=== PATIENT | male | born 1965 | race Caucasian/White ===

== ENCOUNTER 2018-01-16 23:49 | Emergency (ER) | payer OTHER ==
[~2018-01-16] VITALS: Ht 170.2 cm; Wt 74.0 kg
[~2018-01-16 23:49] MED LIST: CEFD300C37 PO; FOLI-17 PO; NADO20TA12 PO; OMEP-110 PO; ONDA4TAB10 PO; SPIR25TA PO; SUCR1ORA5 PO; THIA50TA PO
[2018-01-16 23:52] VITALS: BP 126/76
[2018-01-17] MEDS ORDERED: LIDOCAINE 2%, 20ML INFIL ONE (00:30)
== END 2018-01-17 02:31 | disposition home or self-care (01) ==
LOC: ED 01-17 00:36
DX: S06.0X0A Concussion without loss of consciousness, initial encounter (principal); S01.81XA Laceration without foreign body of other part of head, initial encounter; F10.120 Alcohol abuse with intoxication, uncomplicated; W01.0XXA Fall on same level from slipping, tripping and stumbling without subsequent striking against object, initial encounter; Y93.89 Activity, other specified; Y92.59 Other trade areas as the place of occurrence of the external cause; Y99.8 Other external cause status
CPT/HCPCS: 13131; 13132; 70450; 70486; 99285